=== PATIENT | female | born 1990 | race Caucasian/White ===

== ENCOUNTER 2017-09-14 06:57 | Emergency (ER) | payer MEDICAID ==
[~2017-09-14] VITALS: Ht 162.6 cm; Wt 52.0 kg
[~2017-09-14 06:57] MED LIST: CIPR500T4 PO; HYDR-3533 PO; IBUP800T23 PO
[2017-09-14 07:26] VITALS: BP 136/84; PULSE 83; RESP 18; TEMP 97.8; O2SAT 97
[2017-09-14] MEDS ORDERED: HYDR-3516 PO (07:29)
[2017-09-14] MEDS ORDERED: SODIUM CHLOR 0.9% 1000 ML INJ 1,000 ML IV SCH (08:33)
[2017-09-14] MEDS ORDERED: ACETAMINOPHEN 325 MG TAB PO ONE (08:45)
[2017-09-14 08:52] VITALS: RESP 18; O2SAT 98
[2017-09-14 08:52] LABS: AUTOMATED NEUTROPHIL # 5.5 TH/MM3 (1.8-7.7); BASOPHIL % 0.5 % (0.0-2.0); EOSINOPHIL # 0.1 TH/MM3 (0-0.4); EOSINOPHIL % 1.9 % (0.0-4.0); HEMATOCRIT 34.3 % (35.0-46.0); HEMOGLOBIN 11.7 GM/DL (11.6-15.3); LYMPH % 17.1 % (9.0-44.0); LYMPHOCYTE # 1.3 TH/MM3 (1.0-4.8); MEAN CORPUSCULAR HEMOGLOBIN 30.6 PG (27.0-34.0); MEAN PLATELET VOLUME 8.3 FL (7.0-11.0); MONO % 6.6 % (0.0-8.0); MONOCYTE # 0.5 TH/MM3 (0-0.9); NEUT % 73.9 % (16.0-70.0); PLATELET COUNT 326 TH/MM3 (150-450); RED BLOOD COUNT 3.81 MIL/MM3 (4.00-5.30); RED CELL DISTRIBUTION WIDTH 12.9 % (11.6-17.2); WHITE BLOOD COUNT 7.4 TH/MM3 (4.0-11.0)
[2017-09-14 09:08] LABS: PROTHROMBIN TIME - PATIENT 10.3 SEC (9.8-11.6)
[2017-09-14 09:10] LABS: BACTERIA, URINE MANY /hpf; BILIRUBIN, URINE NEG (NEG); BLOOD, URINE TRACE (NEG); GLUCOSE,URINE NEG (NEG); KETONE, URINE 40 mg/dL (NEG); MUCUS URINE MANY /lpf (OCC); NITRITE,URINE POS (NEG); SQUAMOUS EPITHELIAL CELL URINE 3 /hpf (0-5); URINE COLOR YELLOW (YELLW/STRAW); URINE LEUKOCYTE ESTERASE LARGE (NEG)
--- NOTE | 2017-09-14 09:20 | PD ---
HPI Chief Complaint: Abdominal Pain Time Seen by Provider: 08:26 Travel History International Travel<30 days: No Contact w/Intl Traveler<30days: No Traveled to known affect area: No History of Present Illness HPI Patient presents to the emergency department complaining of abdominal pain that started . Pain is described as being left lower quadrant with radiation to suprapubic area constant, 9 out of 10, alleviated with lying on the right side and keeping her legs up, no aggravating factors. Last sex was 2 weeks ago and it was unprotected, no history of STD. Last menstrual period April patient advises that she is but has had no care. Denies fever, chills, dysuria, diarrhea, nausea or vomiting. Although she does state that she vomited 2 days ago which was p.o. intake. Also reporting yellow vaginal discharge. PFSH Past Medical History Hx Anticoagulant Therapy: No Cardiovascular Problems: No Chemotherapy: No Cerebrovascular Accident: No Diabetes: No Diminished Hearing: No Kidney Stones: Yes Reproductive: Yes (Ovarian cysts) Respiratory: No Immunizations Current: Yes Seizures: Yes ?: Menopausal: No : 6 Para: 2 Miscarriage: 3 : 1 Dilation and Curettage (D&C): Yes Past Surgical History Section: Yes (X's 2) Hysterectomy: No Other Surgery: Yes Social History Alcohol Use: No Tobacco Use: Yes (1/2 PPD) Substance Use: Yes (admits to coccaine, THC, and Opiate use) Allergies-Medications (Allergen,Severity, Reaction): Coded Allergies: *MDRO Multi-Drug Resistant Organism (Verified Allergy, Unknown, 01/29/16) ESBL E. coli urine 01/2015 & 02/2015 & 05/2015 Reported Meds & Prescriptions Reported Meds & Active Scripts Active ( Vit-Ferrous Fumarate) 27 Mg Iron-1 Mg Tab 1 Tab PO DAILY 30 Days Macrobid (Nitrofurantoin Monoh/Nitrofur Macro) 100 Mg Cap 100 Mg PO BID 7 Days Flagyl (Metronidazole) 500 Mg Tab 500 Mg PO BID 7 Days Reported Hydrocodone-Acetaminophen 5-325 mg Tab 1 Tab PO Q4H PRN Review of Systems Except as stated in HPI: all other systems reviewed are Neg Physical Exam Narrative GENERAL: No acute distress, but some discomfort. SKIN: Focused skin assessment warm/dry. HEAD: Atraumatic. Normocephalic. EYES: Pupils equal and round. No scleral icterus. No injection or drainage. ENT: No nasal bleeding or discharge. Mucous membranes pink and moist. NECK: Trachea midline. No JVD. CARDIOVASCULAR: Regular rate and rhythm. No murmur appreciated. RESPIRATORY: No accessory muscle use. Clear to auscultation. Breath sounds equal bilaterally. GASTROINTESTINAL: Abdomen soft, left lower quadrant suprapubic area tender to palpation, gravid. Hepatic and splenic margins not palpable. MUSCULOSKELETAL: No obvious deformities. No clubbing. No cyanosis. No edema. NEUROLOGICAL: Awake and alert. No obvious cranial nerve deficits. Motor grossly within normal limits. Normal speech. PSYCHIATRIC: Appropriate mood and affect; insight and judgment normal. Pelvic: Positive thick yellow discharge present, left adnexal tenderness, os closed; ultrasound positive heart tone Data Data Last Documented VS Vital Signs Date Time Temp Pulse Resp B/P (MAP) Pulse Ox O2 Delivery O2 Flow Rate FiO2 09/14/17 11:25 79 18 140/83 (102) 96 Room Air 09/14/17 07:26 97.8 Orders Orders Beta Hcg (Quant/Titer) (09/14/17 08:33) Complete Blood Count With Diff (09/14/17 08:33) Comprehensive Metabolic Panel (09/14/17 08:33) Prothrombin Time / Inr (Pt) (09/14/17 08:33) Act Partial Throm Time (Ptt) (09/14/17 08:33) Urinalysis - C+S If Indicated (09/14/17 08:33) Iv Access Insert/Monitor (09/14/17 08:33) Ecg Monitoring (09/14/17 08:33) Oximetry (09/14/17 08:33) Sodium Chlor 0.9% 1000 Ml Inj (Ns 1000 M (09/14/17 08:33) Wet Prep Profile (09/14/17 08:33) Gc And Chlamydia Pcr (09/14/17 08:33) Drug Screen, Random Urine (09/14/17 08:33) Acetaminophen (Tylenol) (09/14/17 08:45) Urine Culture (09/14/17 08:38) Azithromycin Powd Pack (Zithromax Powd P (09/14/17 09:45) Ceftriaxone Inj (Rocephin Inj) (09/14/17 09:45) Lidocaine 1% Inj (50 Ml) (Xylocaine 1% I (09/14/17 09:45) Electrocardiogram (09/14/17 10:07) Potassium Chloride (Kcl) (09/14/17 10:15) Metronidazole (Flagyl) (09/14/17 10:15) Us 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 (09/14/17 ) Labs Laboratory Tests Test 09/14/17 08:38 09/14/17 09:25 White Blood Count 7.4 TH/MM3 Red Blood Count 3.81 MIL/MM3 Hemoglobin 11.7 GM/DL Hematocrit 34.3 % Mean Corpuscular Volume 90.0 FL Mean Corpuscular Hemoglobin 30.6 PG Mean Corpuscular Hemoglobin Concent 34.0 % Red Cell Distribution Width 12.9 % Platelet Count 326 TH/MM3 Mean Platelet Volume 8.3 FL Neutrophils (%) (Auto) 73.9 % Lymphocytes (%) (Auto) 17.1 % Monocytes (%) (Auto) 6.6 % Eosinophils (%) (Auto) 1.9 % Basophils (%) (Auto) 0.5 % Neutrophils # (Auto) 5.5 TH/MM3 Lymphocytes # (Auto) 1.3 TH/MM3 Monocytes # (Auto) 0.5 TH/MM3 Eosinophils # (Auto) 0.1 TH/MM3 Basophils # (Auto) 0.0 TH/MM3 CBC Comment DIFF FINAL Differential Comment Prothrombin Time 10.3 SEC Prothromb Time International Ratio 1.0 RATIO Activated Partial Thromboplast Time 28.8 SEC Urine Color YELLOW Urine Turbidity HAZY Urine pH 6.0 Urine Specific [place] 1.025 Urine Protein 30 mg/dL Urine Glucose (UA) NEG mg/dL Urine Ketones 40 mg/dL Urine Occult Blood TRACE Urine Nitrite POS Urine Bilirubin NEG Urine Urobilinogen 2.0 MG/DL Urine Leukocyte Esterase LARGE Urine RBC 14 /hpf Urine WBC 89 /hpf Urine Squamous Epithelial Cells 3 /hpf Urine Bacteria MANY /hpf Urine Mucus MANY /lpf Microscopic Urinalysis Comment CULTURE INDICATED Blood Urea Nitrogen 13 MG/DL Creatinine 0.59 MG/DL Random Glucose 93 MG/DL Total Protein 7.4 GM/DL Albumin 2.9 GM/DL Calcium Level 9.0 MG/DL Alkaline Phosphatase 25 U/L Aspartate Amino Transf (AST/SGOT) 11 U/L Alanine Aminotransferase (ALT/SGPT) 11 U/L Total Bilirubin 0.4 MG/DL Sodium Level 138 MEQ/L Potassium Level 2.9 MEQ/L Chloride Level 102 MEQ/L Carbon Dioxide Level 24.4 MEQ/L Anion Gap 12 MEQ/L Estimat Glomerular Filtration Rate 122 ML/MIN Human Chorionic Gonadotropin, Quant 6657 MIU/ML Urine Opiates Screen POS Urine Barbiturates Screen NEG Urine Amphetamines Screen POS Urine Benzodiazepines Screen POS Urine Cocaine Screen POS Urine Cannabinoids Screen POS Clue Cells (Wet Prep) NONE SEEN Vaginal Trichomonas (Wet Prep) PRESENT Vaginal Yeast (Wet Prep) NONE SEEN MDM Medical Decision Making Medical Screen Exam Complete: Yes Emergency Medical Condition: Yes Interpretation(s) Last Impressions Pelvis Ultrasound 09/14/17 0000 Signed Impressions: Service Date/Time: Thursday, September 14, 2017 10:30 - CONCLUSION: 1. Intrauterine with a femur length corresponding to a gestational age of 20 weeks and 6 days. 2. No free fluid. Ovaries could not be visualized transabdominally due to the gravid uterus. Darrian Hill MD ECG: Sinus rhythm, rate 80, short AL, Labs: Positive UTI, positive trichomonas, UDS positive for opioids, amphetamines , benzodiazepines, cocaine, cannabinoid Differential Diagnosis Urinary tract infection, sexual transmitted infection, contractions, ovarian torsion Narrative Course Patient is and presents to the emergency department with left lower quadrant abdominal pain radiation to the suprapubic area. Will check CBC, chemistry, UA, serum beta, UDS, pelvic exam, urine GC and chlamydia. We will give a liter IV normal saline at 650 Tylenol p.o. 1009: Patient given 2 g of Flagyl for trichomonas, 60 mEq of Potassium CL Physician Communication Physician Communication Spoke to the OB hospitalist. Advised to get pelvic ultrasound to determine gestational age, check for GC and chlamydia, and okay to give Rocephin and Cipro. 1151: Spoke to Dr. Amaya and [facility] OB hospitalist. Advised me to DC her with 500 mg Flagyl twice daily 7 days in addition to the 2 g of Flagyl she received in the ER. Also Macrobid 100 mg twice daily for 7 days for UTI. [facility]. Also advised to DC with vitamins, he was okay with the PNV () with iron and folate. Diagnosis Primary Impression: Trichomonas infection Additional Impressions: Hypokalemia Late care Urinary tract infection Qualified Codes: N30.01 - Acute cystitis with hematuria Patient Instructions: General Instructions, Trichomoniasis (ED) Additional Instructions: 1. Meds as directed. 2. Return to the ER immediately immediately for fever, vomiting, severe abdominal pain, inability to urinate, vaginal bleeding, contractions, or for any new/worrisome/worsening symptoms. 3. Call [phone] , [facility], for care. 4. No alcohol or drug use, alcohol use we will cause a negative reaction with the Flagyl. Med/Other Pt SpecificInfo: Prescription(s) given Scripts Vit-Ferrous Fumarate () 27 Mg Iron-1 Mg Tab 1 TAB PO DAILY for Nutritional Supplement for 30 Days, #30 TAB 0 Refills Prov: Camilla Mccarthy MD 09/14/17 Nitrofurantoin Monohydrate Macrocrystals (Macrobid) 100 Mg Cap 100 MG PO BID for Infection for 7 Days, #14 CAP 0 Refills Prov: Camilla Mccarthy MD 09/14/17 Metronidazole (Flagyl) 500 Mg Tab 500 MG PO BID for Infection for 7 Days, #14 TAB 0 Refills Prov: Camilla Mccarthy MD 09/14/17 Disposition: 01 DISCHARGE HOME Condition: Stable Camilla Mccarthy MD September 14, 2017 09:20
[2017-09-14 09:42] LABS: ALBUMIN 2.9 GM/DL (3.4-5.0); ALKALINE PHOSPHATASE 25 U/L (45-117); ALT (GPT) 11 U/L (10-53); AST (GOT) 11 U/L (15-37); BICARBONATE 24.4 MEQ/L (21.0-32.0); BLOOD UREA NITROGEN 13 MG/DL (7-18); CHLORIDE 102 MEQ/L (98-107); CREATININE 0.59 MG/DL (0.50-1.00); GLOMERULAR FILTRATION RATE 122 ML/MIN (>89); GLUCOSE,RANDOM 93 MG/DL (74-106); SODIUM (NA) 138 MEQ/L (136-145); TOTAL BILIRUBIN ADULT 0.4 MG/DL (0.2-1.0); TOTAL PROTEIN 7.4 GM/DL (6.4-8.2)
[2017-09-14] MEDS ORDERED: cefTRIAXone 250 MG VIAL IM ONE (09:45)
[2017-09-14] MEDS ORDERED: AZITHROMYCIN PWD FOR SUSP 1 GM PACKET PO ONE (09:45)
[2017-09-14] MEDS ORDERED: LIDOCAINE HCL 1% 50 ML VIAL IM ONE (09:45)
[2017-09-14] MEDS ORDERED: POTASSIUM CHLORIDE 10 MEQ CONTROLLED RELEASE TAB PO ONE (10:15)
[2017-09-14] MEDS ORDERED: metroNIDAZOLE 500 MG TAB PO ONE (10:15)
[2017-09-14 11:25] VITALS: BP 140/83; PULSE 79; RESP 18; O2SAT 96
--- NOTE | 2017-09-14 11:29 | RADRPT ---
EXAM DATE/TIME: 09/14/2017 10:30 [place] COMPARISON: No previous studies available for comparison. INDICATIONS : Left pelvic pain. MEDICAL HISTORY : . Substance abuse. Kidney stones. SURGICAL HISTORY : section. D&C. ENCOUNTER: Initial ACUITY: 4-6 days PAIN SCORE: 3/10 LOCATION: Bilateral pelvis MEASUREMENTS: UTERUS: 15.1 x 15.1 x 8.2 cm ENDOMETRIAL STRIPE: RIGHT OVARY: Non visualized LEFT OVARY: Non visualized FINDINGS: UTERUS: The myometrium has homogeneous echotexture without mass. Intrauterine . Femur length of 3.4 cm corresponding to a gestational age of 20 weeks and 6 days. RIGHT OVARY: Nonvisualized LEFT OVARY: Nonvisualized MISCELLANEOUS: No free fluid. CONCLUSION: 1. Intrauterine with a femur length corresponding to a gestational age of 20 weeks and 6 da ys. 2. No free fluid. Ovaries could not be visualized transabdominally due to the gravid uterus. Darrian Hill MD on September 14, 2017 at 10:58 Board Certified Radiologist. This report was verified electronically.
[2017-09-14] MEDS ORDERED: METR-1 PO (11:53)
[2017-09-14] MEDS ORDERED: MACR100C2 PO (11:53)
[2017-09-14] MEDS ORDERED: TRICTAB PO (11:58)
[2017-09-14] MEDS ORDERED: ONDANSETRON ODT 4 MG TAB PO ONE (12:30)
--- NOTE | 2017-09-14 18:45 | EKG ---
Date Performed: 09/14/2017 Time Performed: 10:20:04 PTAGE: 27 years EKG: Sinus rhythm WITH SINUS ARRHYTHMIA WITH SHORT IA INTERVAL POSSIBLE RIGHT ATRIAL ENLARGEMENT BORDERLINE ECG Since the PREVIOUS TRACING , no significant change noted PREVIOUS TRACIN05/13/2013 00.23 DOCTOR: Loc Alvarez Interpretating Date/Time 09/14/2017 18:44:11
== END 2017-09-14 12:41 | disposition home or self-care (01) ==
LOC: NEPE 06:57
DX: O98.312 Other infections with a predominantly sexual mode of transmission complicating pregnancy, second trimester (principal); A59.9 Trichomoniasis, unspecified; O99.282 Endocrine, nutritional and metabolic diseases complicating pregnancy, second trimester; E87.6 Hypokalemia; O09.32 Supervision of pregnancy with insufficient antenatal care, second trimester; O23.12 Infections of bladder in pregnancy, second trimester; O99.332 Smoking (tobacco) complicating pregnancy, second trimester; F17.200 Nicotine dependence, unspecified, uncomplicated; O99.322 Drug use complicating pregnancy, second trimester; F19.90 Other psychoactive substance use, unspecified, uncomplicated; Z3A.20 20 weeks gestation of pregnancy
CPT/HCPCS: 76856; 80053; 80307; 81001; 84702; 85025; 85610; 85730; 87077; 87086; 87186; 87210; 87491; 87591; 93005; 96360; 96361; 96372; 99284; J0696; J7030